=== PATIENT | male | born 1965 | race Caucasian/White ===

== ENCOUNTER 2025-10-03 17:30 | Emergency (ER) | payer OTHER ==
[~2025-10-03] VITALS: Ht 185.4 cm; Wt 79.4 kg
--- NOTE | 2025-10-03 17:39 | ERN ---
ED Note History of Present Illness Stated Complaint: HYPERTENSION Chief Complaint: Hypertension Time Seen by MD: 17:35 Dictation: PATIENT IS A 60-YEAR-OLD RETIRED HERE WITH COMPLAINTS OF HAVING HYPERTENSION AT HOME DESPITE HIS BLOOD PRESSURE MEDICATIONS HE HAS HAD NO CHEST PAIN NO BACK PAIN NO HEADACHE NO SOB. STATES HE TAKES LISINOPRIL 20 MG DAILY AND HAS BEEN COMPLIANT. CURRENT BLOOD PRESSURE IN TRIAGE IS 169/88 WITH A TACHYCARDIC RATE OF 112. PATIENT ALSO STATES THAT HE HAS BEEN ABUSING ALCOHOL RECENTLY. HE STATES HE IS HAVING MARITAL ISSUES AND THIS IS WHAT IS CAUSING HIM DRINK. HE STATES HE WAS IN ALCOHOL REHABILITATION IN [place]UNE IN [place] AND WAS SOBER FOR 41 DAYS THEN WHEN HE CAME HOME TO THE [place], STARTED HAVING TROUBLE HIS AGAIN AND STARTED DRINKING AGAIN. STATES HE DRANK HEAVILY YESTERDAY, TODAY HE HAS ONLY BEEN DRINKING A BEER ONSET AT 04:00 TO KEEP THE SHAKES OFF SO HE DOES NOT FEEL ANXIOUS. HE DENIES ANY HISTORY OF SEIZURES WHEN HE IS WITHDRAWING FROM ALCOHOL. STATES HE WANTS TO GET HELP WITH THE ALCOHOL WITHDRAWAL BUT HE WILL NOT BE STAYING IN THE HOSPITAL. Allergies: Coded Allergies: No Known Drug Allergies (Unverified Allergy, 09/02/12) Past Medical History RN Note Reviewed/Agreed w/PFSH: Yes Review of System Dictation CONSTITUTIONAL: NEGATIVE EXCEPT FOR HPI HEAD/FACE: NEGATIVE EXCEPT FOR HPI EENT: NEGATIVE EXCEPT FOR HPI RESPIRATORY: NEGATIVE EXCEPT FOR HPI GASTROINTESTINAL/ABDOMINAL: NEGATIVE EXCEPT FOR HPI GENITOURINARY: NEGATIVE EXCEPT FOR HPI MUSCULOSKELETAL: NEGATIVE EXCEPT FOR HPI INTEGUMENTARY: NEGATIVE EXCEPT FOR HPI NEUROLOGICAL/PSYCH: NEGATIVE EXCEPT FOR HPI HEMATOLOGIC/LYMPHATIC: NEGATIVE EXCEPT FOR HPI ALL SYSTEMS NEGATIVE, EXCEPT NOTED ABOVE. 13 POINT REVIEW OF SYSTEMS ASSESSED AND ALL NEGATIVE EXCEPT FOR ABOVE. Initial Vital Sign VS Vital Signs Date Time Temp Pulse Resp B/P (MAP) Pulse Ox O2 Delivery O2 Flow Rate FiO2 10/03/25 17:34 97.5 110 18 160/90 99 Room Air 0 10/03/25 18:16 21 Physical Exam Dictation VITAL SIGNS REVIEWED GENERAL APPEARANCE: ALERT, ORIENTED X 3, NO ACUTE DISTRESS, WELL DEVELOPED, NOURISHED. HEAD AND FACE: NON-TRAUMATIC. EYES: PERRL, PINK CONJUNCTIVAS, EYELID NO TRAUMA, ANTERIOR CHAMBER WITH ARCUS SENILIS. EARS: PINNAS INTACT AND NO SIGNS OF TRAUMA OR ERYTHEMA EAR CANALS CLEAR AND NO DISCHARGE TM NO ERYTHEMA NOSE: NO DISCHARGE, NO BLEEDING. OROPHARYNX: MOUTH NORMAL, TONGUE PINK, PHARYNX CLEAR,NO ERYTHEMA, TONSILS NO EXUDATES, NO ABSCESSES NOTED, MUCOUS MEMBRANE MOIST NECK: SUPPLE, NON-TENDER, NO THYROMEGALY, NO MASSES, NO JVD, NO BRUITS BREAST:DEFERRED CHEST:NO TENDERNESS, NO CREPITUS, NO PARADOXICAL MOVEMENT, NO RETRACTIONS LUNGS:CLEAR, WELL-VENTILATED, SYMMETRIC, NO RALES, NO WHEEZING, NO RHONCHI, NO STRIDOR, GOOD BREATH SOUNDS BILATERALLY HEART: TACHYCARDIC AND REGULAR., NO MURMUR, NO GALLOPS VASCULAR: NO PERIPHERAL EDEMA, ABDOMEN: SOFT, POSITIVE BOWEL SOUNDS, NONDISTENDED, NO GUARDING, NONTENDER, NO REBOUND, NO MASSES NO HEPATOMEGALY, NO SPLENOMEGALY, NO HALL'S SIGN, NO HERNIAS. RECTAL: DEFERRED GENITAL: DEFERRED NEUROLOGICAL: NORMAL SPEECH, MOTOR FUNCTION INTACT, SENSORY FUNCTION INTACT MUSCULOSKELETAL: NECK NONTENDER, FULL RANGE OF MOTION, BACK NONTENDER, FULL RANGE OF MOTION, EXTREMITIES: NONTENDER, FULL RANGE OF MOTION SKIN: COLOR PINK, DRY, NO TURGOR, NO RASH, NO LACERATIONS, NO ABRASIONS, NO CONTUSIONS. LYMPHATIC: DEFERRED Results (Laboratory/Radiology) Laboratory/Radiology Laboratory Tests Test 10/03/25 17:58 White Blood Count 7.6 K/uL (4.8-10.8) Red Blood Count 3.83 MIL/uL (4.50-6.20) L Hemoglobin 14.2 g/dL (14.0-18.0) Hematocrit 39.1 % (42-54) L Mean Corpuscular Volume 102.1 fL (79-99) H Mean Corpuscular Hemoglobin 37.1 pg (27.0-33.0) H Mean Corpuscular Hemoglobin Concent 36.3 g/dL (32.0-36.0) H Red Cell Distribution Width 12.2 % (11.0-15.5) Platelet Count 112 K/uL (130-400) L Mean Platelet Volume 9.9 fL (7.5-10.5) Immature Granulocyte % (Auto) 0.3 % (0-1) Neutrophils (%) (Auto) 83.1 % (40.0-77.0) H Lymphocytes (%) (Auto) 8.0 % (21.0-51.0) L Monocytes (%) (Auto) 7.8 % (3.0-13.0) Eosinophils (%) (Auto) 0.4 % (0.0-8.0) Basophils (%) (Auto) 0.4 % (0.0-5.0) Neutrophils # (Auto) 6.3 K/uL (1.8-7.7) Lymphocytes # (Auto) 0.6 K/uL (1.0-4.8) L Monocytes # (Auto) 0.6 K/uL (0.1-1.0) Eosinophils # (Auto) 0.03 K/uL (0.00-0.70) Basophils # (Auto) 0.03 K/uL (0.00-0.20) Absolute Immature Granulocyte (auto 0.02 K/uL (0-1) Nucleated Red Blood Cells 0.0 % (0.0-0.19) White Cell Morphology Comment See comments Red Blood Cell Morphology See comments Sodium Level 128 mmol/L (136-145) L Potassium Level 3.4 mmol/L (3.5-5.1) L Chloride Level 92 mmol/L (101-111) L Carbon Dioxide Level 28 mmol/L (21-32) Blood Urea Nitrogen 7 mg/dL (7-18) Creatinine 0.9 mg/dL (0.5-1.3) Glomerular Filtration Rate Calc 97 mL/min (>90) Random Glucose 174 mg/dL (70-105) H Total Calcium 8.8 mg/dL (8.5-10.1) Magnesium Level 1.80 mg/dL (1.80-2.40) Troponin I High Sensitivity 8 ng/L (4-75) Serum Alcohol 5 mg/dL (0-10) Labs Reviewed?: Yes EKG Comment: 1744/EKG SINUS TACHYCARDIA/HEART RATE 107/RIGHT AXIS DEVIATION/NO ECTOPY ED Course ED Course Orders Procedure Category Date Status Time Cbc With Differential LAB 10/03/25 Complete 17:37 Chest 1vw RAD 10/03/25 Resulted 17:37 12 Lead Ekg Tracing- EKG 10/03/25 Complete Technical 17:37 Magnesium LAB 10/03/25 Complete 17:37 Troponin I High LAB 10/03/25 Complete Sensitivity 17:37 Basic Metabolic Panel LAB 10/03/25 Complete 17:37 Lorazepam 2 Mg PHA 10/03/25 Complete (Ativan) 18:30 Alcohol, Blood LAB 10/03/25 Complete 18:28 Potassium Bicarb/Cit PHA 10/03/25 Complete Ac 25meq (K-Lyte Ta 19:00 Current Medications Medications (Trade) Dose Ordered Sig/Rao Route PRN Reason Start Time Stop Time Status Last Admin Dose Admin Lorazepam (AtiVAN) 2 mg ONCE ONCE PO 10/03/25 18:30 10/03/25 18:31 DC 10/03/25 18:57 Potassium Bicarbonate (K-Lyte Tablet Eff 25 Meq Tablet.eff) 25 meq ONCE ONCE PO 10/03/25 19:00 10/03/25 19:01 DC Vital Signs Date Time Temp Pulse Resp B/P (MAP) Pulse Ox O2 Delivery O2 Flow Rate FiO2 10/03/25 18:16 98.2 111 15 145/86 99 Room Air* 0 21 10/03/25 17:34 97.5 110 18 160/90 99 Room Air 0 1912/PATIENT DISCHARGED HEMODYNAMICALLY STABLE. HEART RATE 99-100. PATIENT WILL BE DISCHARGED HOME WITH LIBRIUM TWENTY-FIVE TOLD DO NOT DRINK AND TAKE LIBRIUM SEE HIS PRIMARY CARE DOCTOR AT THE [facility] TOMORROW FOR ALCOHOL TREATMENT PLACEMENT HEART Score Response (Comments) Value EKG: Repolarization changes 1 Age: 45-65yrs (+1) 1 Risk Factors: 1-2 risk factors (+1) 1 Initial Troponin: Normal limit (0) 0 Total 3 Medical Decision Making MDM MDM: DIFFERENTIAL DIAGNOSIS: ALCOHOL WITHDRAWAL, ELECTROLYTE IMBALANCE/DEHYDRATION/ACS/AMI/HYPERTENSION RATIONALE: TESTS CONSIDERED AND ORDERED SECONDARY TO SHARED DECISION MAKING INCLUDE: EKG/LABS PREVIOUS OUTSIDE RECORDS REVIEWED: OLD ER VISITS. RISK OF COMPLICATION AND/OR MORBIDITY OR MORTALITY OF PATIENT MANAGEMENT: NONE MEDICATIONS-PER MEDICATION RECONCILIATION NEED FOR HOSPITALIZATION: PATIENT DOES NOT MEET CRITERIA FOR HOSPITALIZATION. PATIENT REFUSES ADMISSION AT THIS TIME. STATES HE WILL SEE HIS DOCTOR AT THE [facility] TOMORROW FOR PLACEMENT NEED FOR EMERGENCY MAJOR/MINOR SURGERY: NO THERE ARE NO SOCIAL CONCERNS WITH THIS PATIENT. HISTORY OF ALCOHOL ABUSE PRESCRIPTION DRUG MANAGEMENT LIBRIUM PRESCRIPTIONS WILL INCLUDE SYMPTOMATIC CARE PATIENT'S PRIOR EXTERNAL MEDICAL RECORDS FROM OTHER ER VISITS WERE REVIEWED BY ME INDICATED. PRIOR TESTING AND RESULTS FROM PREVIOUS VISITS WERE REVIEWED. PRIOR TESTS WERE TAKEN INTO ACCOUNT WITH MEDICAL DECISION MAKING AND RESOURCE UTILIZATION, INDEPENDENT HISTORIAN/HISTORIANS WERE USED TO OBTAIN COMPLETE MEDICAL HISTORY. I INDEPENDENTLY INTERPRETED THE TEST THAT WERE PERFORMED, RESULTS WERE REVIEWED BY ME AND CONSIDERED FINDINGS ON RADIOLOGY IF ORDERED. MEDICAL MANAGEMENT AND EXAMINATION INTERPRETATION DISCUSSIONS WERE HAD BY ME WITH OTHER QUALIFIED HEALTHCARE PROFESSIONALS INDICATED FOR THE PATIENT'S CARE. DX & DISP Disposition: Discharge Departure Impression: Primary Impression: Alcohol withdrawal syndrome Additional Impressions: Hyponatremia, Hypokalemia, Diabetes mellitus with hyperglycemia, Benign hypertension Condition: Stable Scripts Chlordiazepoxide HCl (Librium 25 mg Cap) 25 Mg Cap 2 CAP PO Q4PRN PRN for /ALCOHOL WITHDRAWAL SYMPTOMS, #30 CAP 0 Refills Prov: ROSARIO GOLDBERG 10/03/25 Additional Instructions: Follow-up with primary care provider in 1 to 2 days. Take medications as directed here in the emergency room. Okay to continue home medications unless otherwise discussed during your visit in the emergency room today. Return to your nearest emergency room if symptoms worsen or if there is no improvement. Call 911 if you need immediate assistance. Take Tylenol or Motrin [id number] as needed and if no contraindications are present. Increase oral hydration. A wound culture or urine culture [facility] please follow-up with primary care provider and advise them to get repeat ports from our facility. If you had any Theo wrap/splints that were applied here, please do not remove them until you see your primary care or specialty. Take Librium as directed for your alcohol withdrawal symptoms to include anxiety or rapid heart rate. Do not drink and take Librium. Do not operate a vehicle intake Librium. See your primary care doctor at the [facility] in the next 1-2 days for alcohol withdrawal and treatment placement. Referrals: NILSON IRVING (PCP) Time of Disposition: 19:14 I have reviewed the case, and I agree with, Diagnosis and Plan ROSARIO GOLDBERG Oct 03, 2025 17:39
--- NOTE | 2025-10-03 17:51 | EKG ---
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
[2025-10-03 18:06] LABS: IMMATURE GRANULOCYTE ABSOLUTE 0.02 K/uL (0-1); NUCLEATED RED BLOOD CELLS 0.0 % (0.0-0.19); PLATELET COUNT (AUTO) 112 K/uL (130-400); RED BLOOD CELL COUNT(AUTO) 3.83 MIL/uL (4.50-6.20); RED CELL DISTRIBUTION WIDTH 12.2 % (11.0-15.5); WHITE BLOOD COUNT (AUTO) 7.6 K/uL (4.8-10.8)
[2025-10-03 18:18] LABS: CREATININE 0.9 mg/dL (0.5-1.3); GLOMERULAR FILTR. RATE CALC 97.0 mL/min (>90); GLUCOSE,RANDOM 174.0 mg/dL (70-105); SODIUM SERUM 128.0 mmol/L (136-145); UREA NITROGEN, BLOOD 7.0 mg/dL (7-18)
--- NOTE | 2025-10-03 19:08 | HMCIMG ---
EXAM: CR Chest, 1 View. CLINICAL HISTORY: CHEST PAIN COMPARISON: None provided. FINDINGS: LUNGS: The lungs show no infiltrate or other acute finding. PLEURAL SPACES: No pleural effusion or pneumothorax. MEDIASTINUM: The cardiomediastinal silhouette is within normal limits. BONES: No acute osseous abnormality. IMPRESSION: No acute cardiopulmonary pathology is evident. /[place]
[2025-10-03] MEDS ORDERED: CHLO25CA6 PO (19:17)
[2025-10-03 19:38] VITALS: BP 127/82; PULSE 100; RESP 16; TEMP 98.6; O2SAT 99
== END 2025-10-03 19:40 | disposition home or self-care (01) ==
LOC: EDH 17:30
DX: F10.239 Alcohol dependence with withdrawal, unspecified (principal); E87.1 Hypo-osmolality and hyponatremia; E87.6 Hypokalemia; E11.65 Type 2 diabetes mellitus with hyperglycemia; I10 Essential (primary) hypertension; Y90.0 Blood alcohol level of less than 20 mg/100 ml
CPT/HCPCS: 36415; 71045; 80048; 83735; 84484; 85025; 93005; 99285